=== PATIENT | male | born 1950 | race Hispanic/Latino ===

== ENCOUNTER → 2019-11-01 | Outpatient (CLI) | payer MEDICARE, OTHER | LOC: CARD 14:09 | PROVIDERS: ATTEND Internal Medicine Infectious Disease | DX: I73.89 Other specified peripheral vascular diseases (principal); I87.2 Venous insufficiency (chronic) (peripheral) | CPT/HCPCS: 93922; 93925; 93970 ==

== ENCOUNTER 2019-11-06 14:11 | Outpatient (RCR) | payer MEDICARE, OTHER ==
[2019-11-02 12:31] LABS: BASOPHILS % 0.4 % (0.0-1.0); EOSINOPHILS # (AUTO) 0.1 (0.0-0.4); EOSINOPHILS % 1.8 % (0.0-6.0); HEMATOCRIT 41.4 % (38.2-49.6); HEMOGLOBIN 13.5 g/dL (14.0-18.0); LYMPHOCYTES # (AUTO) 0.9 (1.0-3.2); LYMPHOCYTES % 13.6 % (18.0-39.1); MEAN CORPUSCULAR HEMOGLOBIN 29.3 pg (28-32); MEAN CORPUSCULAR HGB CONC 32.6 g/dL (31-35); MONOCYTES # (AUTO) 0.5 (0.2-0.8); MONOCYTES % 7.6 % (4.4-11.3); NEUTROPHILS # (AUTO) 5.2 (2.1-6.9); NEUTROPHILS % 76.2 % (38.7-80.0); PLATELET COUNT 203 x10e3/uL (140-360); RED CELL DISTRIBUTION WIDTH 13.8 % (11.7-14.4)
[2019-11-02 12:49] LABS: INR 1.04; PARTIAL THROMBOPLASTIN TIME 29.9 seconds (23.8-35.5); PROTHROMBIN TIME 14.2 seconds (11.9-14.5)
[2019-11-02 12:57] LABS: ALBUMIN 3.1 g/dL (3.5-5.0); ALBUMIN/GLOBULIN RATIO 0.6 (0.8-2.0); ALKALINE PHOSPHATASE 131 IU/L (40-150); ANION GAP 15.8 mmol/L (8-16); BLOOD UREA NITROGEN 17 mg/dL (7-26); BUN/CREATININE RATIO 25 (6-25); CALCIUM 9.1 mg/dL (8.4-10.2); CARBON DIOXIDE 25 mmol/L (22-29); CHLORIDE 102 mmol/L (98-107); CREATININE, SERUM 0.69 mg/dL (0.72-1.25); EST GLOMERULAR FILTRATION RATE > 60 ML/MIN (60-); GLUCOSE 89 mg/dL (74-118); POTASSIUM 3.8 mmol/L (3.5-5.1); SODIUM 139 mmol/L (136-145)
[2019-11-02 13:04] LABS: ALANINE AMINOTRANSFERASE < 6 IU/L (0-55)
[2019-11-02 13:19] LABS: ERYTHROCYTE SEDIMENTATION RATE 82 mm/hr (0-13)
[~2019-11-06 14:11] MED LIST: COLLAGENASE OINTMENT 30 GM TUBE ONE; MINERAL OIL/PETROLAT/GLYCERI 6OZ BTL ONE
[2019-11-06] MEDS ORDERED: LIDOCAINE/PRILOCAINE 2.5-2.5% KIT ONE (17:37)
[2019-11-06] MEDS ORDERED: COLLAGENASE OINTMENT 30 GM TUBE ONE (17:37)
[2019-11-06] MEDS ORDERED: MINERAL OIL/PETROLAT/GLYCERI 6OZ BTL ONE (17:37)
[2019-11-13] MEDS ORDERED: ELIQUIS5 MG PO (11:41)
[2019-11-13] MEDS ORDERED: CARBIDOPA-LEVO1 EAC1 PO (11:41)
[2019-11-13] MEDS ORDERED: ATORVASTATIN CA20 MG PO (11:41)
[2019-11-13] MEDS ORDERED: METOPROLOL SUCC50 MG PO (11:41)
[2019-11-13] MEDS ORDERED: PRAMIPEXOLE DIHY1 MG PO (11:41)
== END 2019-11-24 ==
LOC: WCC 14:11
PROVIDERS: ATTEND Internal Medicine Infectious Disease
DX: I87.332 Chronic venous hypertension (idiopathic) with ulcer and inflammation of left lower extremity (principal); L97.829 Non-pressure chronic ulcer of other part of left lower leg with unspecified severity; L02.818 Cutaneous abscess of other sites; I87.2 Venous insufficiency (chronic) (peripheral); I73.89 Other specified peripheral vascular diseases; R60.0 Localized edema; L01.00 Impetigo, unspecified; I50.20 Unspecified systolic (congestive) heart failure; I48.91 Unspecified atrial fibrillation; I10 Essential (primary) hypertension; G20 Parkinson's disease; E78.5 Hyperlipidemia, unspecified
CPT/HCPCS: 36415; 80053; 83036; 85025; 85610; 85651; 85730; 87071; 87075; 87186; 87205

== ENCOUNTER 2019-11-12 16:21 | Inpatient (IN) | payer MEDICARE, OTHER ==
[~2019-11-12] VITALS: Ht 167.6 cm; Wt 120.7 kg
--- OUTSIDE RECORDS SUMMARY | 2019-11-12 12:30 | XMS REPORT | Summary of Care ---
Author Author DANELLE QUINTERO M.D. Organization Unknown Address Unknown Phone Unavailable Care Team Providers Care Senior Ui Software Engineer Name Role Phone DANELLE QUINTERO M.D. Unavailable Unavailable Maddy Jay LVN Unavailable Unavailable DANELLE QUINTERO MD Unavailable Unavailable Unavailable Unavailable Functional Status Name Dates Details Functional status health issues are not documented Status: Name Dates Details Cognitive status health issues are not documented Status: Problems Name Dates Details Tremor (781.0, R25.1) Status: Active Parkinson's disease (332.0, G20) Status: Active Social alcohol use (V49.89, Z78.9) Status: Active Essential hypertension (401.9, I10) Status: Active Chronic atrial fibrillation (427.31, I48.20) Status: Active Cardiomyopathy (425.4, I42.9) Status: Active Diastolic HF (heart failure) (428.30, I50.30) Status: Active SOB (shortness of breath) (786.05, R06.02) Status: Active Hyperlipidemia (272.4, E78.5) Status: Active Cough (786.2, R05) Status: Active Syncope (780.2, R55) Status: Active Atrial fibrillation (427.31, I48.91) Status: Active Medications Name Dates Details Furosemide 40 MG Oral Tablet TAKE 1 TABLET DAILY Quantity: 90 DANELLE QUINTERO M.D. * Start : 28-Nov-2007 Active Carbidopa-Levodopa 25-100 MG Oral Tablet TAKE 2 TABLET 4 TIMES DAILY * Refills: 3 * Start : 29-Dec-2010 Active Pramipexole Dihydrochloride 1 MG Oral Tablet TAKE 2 TABLET 4 TIMES DAILY * Refills: 6 * Start : 29-Dec-2010 Active Eliquis 5 MG Oral Tablet TAKE 1 TABLET BY MOUTH TWICE DAILY * Quantity: 180 Refills: 1 DANELLE QUINTERO M.D. * Start : 28-Aug-2018 Active Atorvastatin Calcium 20 MG Oral Tablet TAKE 1 TABLET BY MOUTH ONCE DAILY * Quantity: 90 Refills: 0 DANELLE QUINTERO M.D. * Start : 23-May-2018 Active Metoprolol Succinate ER 50 MG Oral Tablet Extended Release 24 Hour TAKE 1 TABLET DAILY. * Quantity: 90 Refills: 3 DANELLE QUINTERO M.D. * Start : 26-Oct-2018 Active Allergies and Adverse Reactions Name Dates Details No Known Drug Allergies (Allergy) Status: Active Past Medical History Name Dates Details History of cardiac disorder (V12.50, Z86.79) Status: Resolved History of No Recent Change In Medical History Status: Resolved Procedures Procedure Dates Details Procedures not documented Immunization Name Dates Details Immunizations not documented Family History Name Dates Details Family history of Family History Comments: Family History Status: Active Family history of Hypertension (V17.49) Comments: Family History Status: Active Family history of Heart Disease (V17.49) Comments: Family History Status: Active Family history of Thrombophlebitis Of Deep Vessels Of The Lower Extremity Comments: Family History Status: Active Name Dates Details No pertinent family history (V49.89, Z78.9) Status: Active Social History Name Dates Details - Status: Name Dates Details Never smoker Vital Signs Date Test Result Details No Known Vitals to report Results Date Description Value Details Results not documented Plan of Care Name Dates Details Planned Observations Planned Goals not documented Planned Encounters Appointment; DANELLE QUINTERO M.D. On: 22-Nov-2019 10:20 Interventions Provided Medication Changes* Eliquis 5 MG Oral Tablet - Renew Instructions Name Dates Details Instructions not documented Encounters Appointment; DANELLE QUINTERO M.D. Encounter Diagnosis: Problem not documented On: 10-Nov-2017 8:00 Appointment; DANELLE QUINTERO M.D. Encounter Diagnosis: Problem not documented On: 11-May-2018 12:00 Appointment; [facility] Encounter Diagnosis: Problem not documented On: 18-May-2018 15:00 Appointment; DANELLE QUINTERO M.D. Encounter Diagnosis: Problem not documented On: 26-Oct-2018 12:00 Appointment; DANELLE QUINTERO M.D. Encounter Diagnosis: Problem not documented On: 07-Dec-2018 10:20 Appointment; DANELLE QUINTERO M.D. Encounter Diagnosis: Problem not documented On: 13-Dec-2018 9:20 Appointment; DANELLE QUINTERO M.D. Encounter Diagnosis: Problem not documented On: 15-Mar-2019 12:00 Appointment; DANELLE QUINTERO M.D. Encounter Diagnosis: Problem not documented On: 24-May-2019 8:00
--- OUTSIDE RECORDS SUMMARY | 2019-11-12 16:24 | XMS REPORT ---
[facility] Address Unknown Phone Unavailable Care Team Providers Care Document Control Manager Name Role Phone ADOLOF RING Unavailable Unavailable Problems This patient has no known problems. Allergies, Adverse Reactions, Alerts This patient has no known allergies or adverse reactions. Medications This patient has no known medications. Results Test Description Test Time Test Comments Text Results Atomic Results Result Comments CHEST XRAY LINE PLACEMENT 2019-11-12 14:21:00 [place] [id number] Patient Name: NORBERT MOSLEY MR #: [id number] : 1950 Age/Sex: 69/M Req #: [id number] Adm Physician: Ordered by: ADOLFO RING MD Report #: [id number] Location: DX Room/Bed: Procedure: [id number] DX/CHEST XRAY LINE PLACEMENT Exam Date: Exam Time: REPORT STATUS: Signed EXAMINATION: CHEST XRAY LINE PLACEMENT INDICATION: L ine placement COMPARISON: None FINDINGS: LINES/TUBES:Right PICC line terminates in the superior vena cava. LUNGS:The lungs are moderately inflated. No focal consolidation or pulmonary edema. PLEURA:No pleural effusion or pneumothorax. MEDIASTINUM:The cardiomediastinal silhouette appears normal in size and shape. BONES/SOFT TISSUES:No acute osseous injury. ABDOMEN:No free air under the diaphragm. IMPRESSION: Right PICC line terminates in the superior vena cava. Signed by: Farrukh Albert MD on 11/12/2019 2:22 PM Dictated By: FARRUKH ALBERT MD 142 Transcribed By: KEVIN on 11/12/191421 COPY TO: ADOLFO RING MD
--- NOTE | 2019-11-12 21:05 | NUR ---
PICC Placement confirmed via CXR done today VISION SPECIALIST, line was placed at this facility VISION SPECIALIST in radiology for OPTX or possible IPTX, workup in progress, Pt and family verbalize understanding.
[2019-11-12] MEDS ORDERED: VANCOMYCIN 1GM/NS 250 ML 250 ML IV ONE (21:15)
[2019-11-12 21:24] LABS: BASOPHILS % 0.6 % (0.0-1.0); EOSINOPHILS # (AUTO) 0.1 (0.0-0.4); HEMATOCRIT 42.3 % (38.2-49.6); HEMOGLOBIN 13.7 g/dL (14.0-18.0); LYMPHOCYTES # (AUTO) 1.3 (1.0-3.2); MEAN CORPUSCULAR HEMOGLOBIN 28.5 pg (28-32); MEAN CORPUSCULAR HGB CONC 32.4 g/dL (31-35); MEAN CORPUSCULAR VOLUME 88.1 fL (81-99); MONOCYTES # (AUTO) 0.8 (0.2-0.8); MONOCYTES % 11.7 % (4.4-11.3); NEUTROPHILS # (AUTO) 4.8 (2.1-6.9); NEUTROPHILS % 67.3 % (38.7-80.0); PLATELET COUNT 243 x10e3/uL (140-360); RED CELL DISTRIBUTION WIDTH 13.8 % (11.7-14.4)
[2019-11-12 21:30] LABS: INR 1.02
[2019-11-12 21:31] LABS: PARTIAL THROMBOPLASTIN TIME 38.4 seconds (23.8-35.5)
[2019-11-12 21:40] LABS: ALANINE AMINOTRANSFERASE 22 IU/L (0-55); ALBUMIN 2.9 g/dL (3.5-5.0); ALBUMIN/GLOBULIN RATIO 0.5 (0.8-2.0); ALKALINE PHOSPHATASE 165 IU/L (40-150); ANION GAP 16.7 mmol/L (8-16); BLOOD UREA NITROGEN 17 mg/dL (7-26); BUN/CREATININE RATIO 25 (6-25); CALCIUM 9.6 mg/dL (8.4-10.2); CARBON DIOXIDE 27 mmol/L (22-29); CHLORIDE 101 mmol/L (98-107); CREATININE, SERUM 0.68 mg/dL (0.72-1.25); EST GLOMERULAR FILTRATION RATE > 60 ML/MIN (60-); GLUCOSE 103 mg/dL (74-118); POTASSIUM 3.7 mmol/L (3.5-5.1); SODIUM 141 mmol/L (136-145)
[2019-11-12] MEDS ORDERED: CEFEPIME 1GM/NS 0.9% 50 ML 50 ML IV ONE (21:45)
[2019-11-13] MEDS ORDERED: MORPHINE SULFATE 2 MG/ML SYR 1ML IV PRN ×2 (00:45→09:15)
--- NOTE | 2019-11-13 01:01 | NUR ---
Pt updated on POC and TX, intent of admission for IV ABX, verbalized understanding; Wound care provided for Pt, wet to dry dresssing in place.
[2019-11-13] MEDS: ONDANSETRON HCL INJ 2MG/ML 2ML 2 MG/ML VIAL IV PRN ×2 (01:41→21:56)
--- NOTE | 2019-11-13 06:16 | NUR ---
Pt assisted at bedside with urinal, voided approx 400 cc at this time.
[2019-11-13] MEDS ORDERED: POLYETHYLENE GLYCOL 3350 17 GM PACK PO PRN (09:15)
[2019-11-13] MEDS ORDERED: BENZONATATE 100 MG CAP PO PRN (09:15)
[2019-11-13] MEDS ORDERED: ACETAMINOPHEN 325 MG TAB PO PRN (09:15)
[2019-11-13] MEDS ORDERED: HYDROCODONE/APAP 5MG-325MG TAB PO PRN (09:15)
[2019-11-13] MEDS ORDERED: DOCUSATE SODIUM 100 MG CAP PO PRN (09:15)
[2019-11-13] MEDS ORDERED: HYDRALAZINE HCL 20 MG/ML VIAL IV PRN (09:15)
[2019-11-13 09:47] LABS: BASOPHILS % 0.5 % (0.0-1.0); EOSINOPHILS # (AUTO) 0.1 (0.0-0.4); HEMATOCRIT 38.1 % (38.2-49.6); HEMOGLOBIN 12.2 g/dL (14.0-18.0); LYMPHOCYTES # (AUTO) 0.9 (1.0-3.2); LYMPHOCYTES % 11.9 % (18.0-39.1); MEAN CORPUSCULAR HEMOGLOBIN 28.4 pg (28-32); MEAN CORPUSCULAR VOLUME 88.8 fL (81-99); MONOCYTES # (AUTO) 0.7 (0.2-0.8); MONOCYTES % 9.1 % (4.4-11.3); NEUTROPHILS # (AUTO) 6.1 (2.1-6.9); PLATELET COUNT 227 x10e3/uL (140-360); RED BLOOD COUNT 4.29 x10e6/uL (4.3-5.7); RED CELL DISTRIBUTION WIDTH 13.8 % (11.7-14.4)
[2019-11-13 10:05] LABS: ANION GAP 12.8 mmol/L (8-16); BLOOD UREA NITROGEN 15 mg/dL (7-26); BUN/CREATININE RATIO 23 (6-25); CALCIUM 9.2 mg/dL (8.4-10.2); CARBON DIOXIDE 28 mmol/L (22-29); CHLORIDE 103 mmol/L (98-107); CREATININE, SERUM 0.64 mg/dL (0.72-1.25); EST GLOMERULAR FILTRATION RATE > 60 ML/MIN (60-); GLUCOSE 129 mg/dL (74-118); POTASSIUM 3.8 mmol/L (3.5-5.1); SODIUM 140 mmol/L (136-145)
[2019-11-13] MEDS: VANCOMYCIN 1GM/NS 250 ML 250 ML IV SCH ×2 (11:18→23:51)
[2019-11-13] MEDS: CEFEPIME 1GM/NS 0.9% 50 ML 50 ML IV SCH ×2 (11:18→21:01)
[2019-11-13] MEDS ORDERED: ATORVASTATIN CA20 MG PO (11:41)
[2019-11-13] MEDS ORDERED: CARBIDOPA-LEVO1 EAC1 PO (11:41)
[2019-11-13] MEDS ORDERED: ELIQUIS5 MG PO (11:41)
[2019-11-13] MEDS ORDERED: METOPROLOL SUCC50 MG PO (11:41)
[2019-11-13] MEDS ORDERED: PRAMIPEXOLE DIHY1 MG PO (11:41)
[2019-11-13] MEDS: CARBIDOPA/LEVODOPA 25/100 TAB PO SCH ×3 (14:25→21:00)
[2019-11-13] MEDS: PRAMIPEXOLE DIHYDROCHLORIDE 1 MG TAB PO SCH ×3 (15:12→20:57)
[2019-11-13] MEDS: APIXABAN 5 MG TABLET PO SCH (17:53)
[2019-11-13] MEDS: METOPROLOL SUCCINATE 50 MG TAB XL PO SCH (17:53)
--- NOTE | 2019-11-13 20:15 | NUR ---
Received patient from ER, alert, not in distress, at the bedside. Call light within easy reach, patient made comfortable in bed, plan of care discussed to patient, patient verbalized understanding. PICC line is ok to use per report, will continue to monitor patient
[2019-11-13] MEDS ORDERED: SODIUM CHLORIDE 0.9% 250ML 250 ML ONE (20:57)
[2019-11-13] MEDS: ATORVASTATIN 20 MG TAB PO SCH (20:57)
[2019-11-13 21:00] VITALS: BP 122/80
--- NOTE | 2019-11-13 21:00 | NUR ---
Wound care done, cleansed wound with sterile water and saline, telfa and gauze in place, wrapped leg with kerlix. Patient tolerated the procedure
[2019-11-13 21:13] VITALS: BP 112/82
--- NOTE | 2019-11-13 21:19 | Consultation ---
DATE OF CONSULTATION: REASON FOR CONSULTATION: Cellulitis of the left leg and also the right leg. HISTORY OF PRESENT ILLNESS: This patient who is a 69-year-old has a history of bilateral lower extremities lymphedema. The patient comes into the emergency room with redness and swelling of his leg. He has been having swelling of his legs for some time, but recently getting progressively worse. The patient in the last few days has redness, swelling, and seepage. The patient apparently has history of rectal cancer before. MEDICATION LIST: He is currently on Toprol, Eliquis, Sinemet, vancomycin, cefepime, Zofran, Lipitor, Colace, morphine. LABORATORY DATA: White count 7.9, hemoglobin of 12.2, his platelets of 227. Sodium 141, potassium 3.7, creatinine 0.68, alk phosphatase 165. PAST MEDICAL HISTORY: Hypercholesteremia, hypertension, and colon cancer. PAST SURGICAL HISTORY: As above. ALLERGIES: NKA. SOCIAL HISTORY: There is no smoking, drug abuse, or alcohol abuse. FAMILY HISTORY: Otherwise noncontributory. REVIEW OF SYSTEMS: At the present time, HEENT: There is no headache, visual changes, or hearing changes. GI: There is no nausea. No vomiting. No diarrhea. CARDIAC: There is no arrhythmia. NEURO: No seizure activity. SKIN: There are no other rashes, except on the bilateral lower extremities. EXTREMITIES: In the leg, there is redness and swelling noted. There is nonpitting edema. IMPRESSION: Cellulitis of the left leg in a patient with bilateral lower extremities lymphedema, history of hypertension. I agree with vancomycin, agree with cefepime, agree with thigh-high elastic stocking. Local care to keep the wound clean. Recommended to maximize the management of his blood pressure. Discussed with the patient. We will follow with you. We will follow with vancomycin trough and follow up CBC, chemistry panel. MD RACHEL Carr/SILVIA /[id number]
--- NOTE | 2019-11-13 23:54 | History and Physical ---
CHIEF COMPLAINT: Left lower extremity cellulitis. HISTORY OF PRESENT ILLNESS: A 69-year-old male, morbidly obese, history of Parkinson disease, hypertension, hyperlipidemia, presented to the ED with worsening left lower extremity cellulitis as well as underlying lymphedema. The patient reports he has been dealing with this left lower extremity cellulitis and ulceration ongoing since June of 2019. He has been following up as an outpatient with his PCP with little resolved. He has been following up in the Lymphedema Clinic as well with minimal results. He now presents with worsening left lower extremity cellulitis and came in for further evaluation and management. ID and Wound Care have been consulted. REVIEW OF SYSTEMS: Pertinent positives: Left lower extremity cellulitis with erythema and redness. The rest of 14-point review of systems are reviewed with the patient and are negative. ALLERGIES: NO KNOWN DRUG ALLERGIES. HOME MEDICATIONS: 1. Eliquis 5 mg p.o. b.i.d. 2. Lipitor 20 mg at bedtime. 3. Levodopa/carbidopa two tabs p.o. q.i.d. 4. Metoprolol 50 mg extended release b.i.d. He also takes pramipexole 2 mg p.o. q.i.d. PAST MEDICAL HISTORY: He has Parkinson disease, history of atrial fibrillation, hyperlipidemia. PAST SURGICAL HISTORY: Reports none. FAMILY HISTORY: Hypertension and diabetes. SOCIAL HISTORY: No drugs. No alcohol. Does not smoke. Good social support. He is . LABORATORY FINDINGS: Show white count 7.9, hemoglobin 12, hematocrit is 38, and platelets of 227. Coagulation; PT 14, INR 1, PTT 38. Chemistry sodium 140, potassium 3.8, chloride 103, bicarb 28, anion gap of 12. BUN 15, creatinine 0.64, glucose 129, A1c 5.6, calcium 9.2, total bilirubin was 0.8. AST 43, ALT 22, alkaline phosphatase 165, total protein 8.2, albumin is 2.9. MICROBIOLOGY: None. IMAGING STUDIES: None. PHYSICAL EXAMINATION: VITAL SIGNS: Temperature is 96.3, pulse 102, respiratory rate is 18, blood pressure 112/82, pulse ox 98% on room air. GENERAL: No acute distress. Alert and oriented x3. Cooperative on examination. HEENT: Head is normocephalic and atraumatic. Eyes; pupils are equal, round, and reactive to light bilaterally. Extraocular movements are intact bilaterally. Throat, no evidence of any erythema or exudates in the posterior pharynx. Has poor dentition. NECK: Supple. Good range of motion. PULMONARY: Clear to auscultation bilaterally. No wheezing, rales, or rhonchi. No crackles appreciated. CARDIOVASCULAR: Positive S1, S2. No murmurs, rubs, or gallops appreciated. ABDOMEN: Soft, nondistended, and nontender to palpation. Bowel sounds present. MUSCULOSKELETAL: Strength is 5/5 throughout. No evidence of any muscle deficits on examination. No weakness appreciated. NEUROLOGIC: Cranial nerve 2 through 12 grossly intact. No evidence of any neurological deficits on exam. SKIN: Intact. Warm to touch. Good cap refill. PSYCHIATRIC: Normal affect and mood. EXTREMITIES: His left lower extremity is erythematic, warm to touch. He has some significant lower extremity edema as well. IMPRESSION: 1. Left lower extremity cellulitis. 2. Bilateral lower extremity lymphedema. 3. History of atrial fibrillation, on anticoagulation. 4. Parkinson disease. 5. Hypoalbuminemia. PLAN: At this time, start on IV antibiotics, get lower extremity venous Doppler, get ID and Wound Care consultation. Local wound care ordered. Restart levodopa/carbidopa for his underlying Parkinson disease. The patient's albumin level is low. We will get urine protein to creatinine ratio as well as microalbumin to creatinine ratio. Restart all his antihypertensive medications. He is already on Eliquis for DVT prophylaxis. Get PT/OT evaluation. MD ELIZABET Nguyễn/FRANCISCOL /[id number]
[2019-11-14 01:00] VITALS: BP 129/81
[2019-11-14] MEDS: FUROSEMIDE INJ 10 MG/ML 4 ML VIAL IV SCH ×3 (05:02→22:09)
[2019-11-14 05:30] LABS: BASOPHILS % 0.6 % (0.0-1.0); EOSINOPHILS # (AUTO) 0.3 (0.0-0.4); EOSINOPHILS % 3.9 % (0.0-6.0); HEMATOCRIT 36.5 % (38.2-49.6); HEMOGLOBIN 11.5 g/dL (14.0-18.0); LYMPHOCYTES # (AUTO) 1.1 (1.0-3.2); LYMPHOCYTES % 15.7 % (18.0-39.1); MEAN CORPUSCULAR HGB CONC 31.5 g/dL (31-35); MONOCYTES # (AUTO) 0.7 (0.2-0.8); MONOCYTES % 10.3 % (4.4-11.3); NEUTROPHILS # (AUTO) 4.6 (2.1-6.9); NEUTROPHILS % 69.1 % (38.7-80.0); PLATELET COUNT 195 x10e3/uL (140-360); RED CELL DISTRIBUTION WIDTH 13.9 % (11.7-14.4)
[2019-11-14 05:47] LABS: ANION GAP 13.5 mmol/L (8-16); BLOOD UREA NITROGEN 14 mg/dL (7-26); BUN/CREATININE RATIO 23 (6-25); CALCIUM 8.5 mg/dL (8.4-10.2); CARBON DIOXIDE 28 mmol/L (22-29); CHLORIDE 101 mmol/L (98-107); CREATININE, SERUM 0.61 mg/dL (0.72-1.25); EST GLOMERULAR FILTRATION RATE > 60 ML/MIN (60-); GLUCOSE 95 mg/dL (74-118); POTASSIUM 3.5 mmol/L (3.5-5.1); SODIUM 139 mmol/L (136-145)
[2019-11-14 06:34] VITALS: BP 142/98
--- NOTE | 2019-11-14 07:16 | NUR ---
walking rounds done with dayshift RN, call light within easy reach, at bedside
[2019-11-14 07:25] VITALS: BP 113/98
--- NOTE | 2019-11-14 07:25 | NUR ---
PT UP IN CHAIR , DENIES PAIN NO DISTRESS NTOED,DRSG TO LOWER EXT APPLIED.
[2019-11-14] MEDS: PRAMIPEXOLE DIHYDROCHLORIDE 1 MG TAB PO SCH ×4 (09:18→22:09)
[2019-11-14] MEDS: METOPROLOL SUCCINATE 50 MG TAB XL PO SCH ×2 (09:18→17:00)
[2019-11-14] MEDS: APIXABAN 5 MG TABLET PO SCH ×2 (09:18→16:50)
[2019-11-14] MEDS: CARBIDOPA/LEVODOPA 25/100 TAB PO SCH ×4 (09:18→22:09)
[2019-11-14] MEDS ORDERED: SODIUM HYPOCHLORITE 0.25% 480 ML SOLN IR ONE (10:00)
[2019-11-14] MEDS: CEFEPIME 1GM/NS 0.9% 50 ML 50 ML IV SCH ×2 (10:00→22:09)
[2019-11-14] MEDS: VANCOMYCIN 1GM/NS 250 ML 250 ML IV SCH (12:00)
--- NOTE | 2019-11-14 14:37 | NUR ---
WOUND CARE CONSULT FOR 69 YO MALE HX OF_LYMPH EDEMA AND SKIN ULCERATION FABIOLA 11 ON STRICT PUP STATUS AND INTERVENTIONS AND ALTERNATING PRESSURE MATTRESS LABS: WBC-7.07 HGB_ 13.7 GLUCOSE-103 NIJH9P-9.6 SKIN ASSESSMENT COMPLETE PATIENT PRESENTS WITH BILATERAL LOWER LEG EDEMA LEFT LOWER LEG HAS ULCERATION 20CM X12CM X.2CM 75 % BRIGHT RED BASE AND 25% YELLOW BROWNISH SLOUGH RECOMMENDATIONS: NURSING TO CONTINUE TO MAINTAIN STRICT PUP STATUS AND INTERVENTIONS AND ALTERNATING PRESSURE MATTRESS NURSING TO CONTINUE TO ASSIST PATIENT OUT OF BED FOR MEALS AND MUCH TOLERATED NURSING TO CONTINUE TO ASSIST PATIENT NEEDED WITH MEALS AND NUTRITIONAL SUPPLEMENTS TO ENSURE PROPER REQUIREMENTS FOR HEALING NURSING TO CONTINUE TO OFFLOAD FEET AND HEELS NEEDED WITH PILLOW SUSPENSION WHEN IN BED MD ORDERS IN PLACE FOR DAILY WOUND CARE TREATMENT Addendum: 11/14/19 at 1447 by Chato Guidry RN Amended: Links added.
[2019-11-14 15:05] VITALS: BP 104/77
--- NOTE | 2019-11-14 15:17 | Consultation ---
DATE OF CONSULTATION: Wound Consultation Thank you, Dr. Del Toro, for asking me to see this patient. HISTORY OF PRESENT ILLNESS: A 69-year-old morbidly obese male patient with history of chronic atrial fibrillation, Parkinson disease, wheelchair-bound and long-standing bilateral lower extremity edema. He was using lymphedema pump 2 years back, stopped following, has chronic nonhealing ulcer to the left leg past few months, gotten worse with necrotic infection. The patient came to the emergency room due to failed outpatient treatment. PAST MEDICAL HISTORY: Atrial fibrillation, hypertension, Parkinson disease, chronic leg edema, lymphedema, obesity. PERSONAL HISTORY: He used to smoke cigarette, very long time ago. No smoking for 40 years. Lives with . PAST SURGICAL HISTORY: None. PHYSICAL EXAMINATION: VITAL SIGNS: Blood pressure 142/98, pulse of 88, temperature 96.8, weight 277 pounds, height 5 feet 6 inches, BMI 44.7. HEENT: Normal. NECK: No JVD. LUNGS: Bilaterally air entry diminished. CVS: Normal. ABDOMEN: Soft. Bowel sounds normal. EXTREMITIES: Protuberant lower extremities. Bilateral lower extremity 3+ edema present. Chronic venous stasis. Heme pigmentation noted in both legs. Left leg the patient has full-thickness ulcer involving the calf muscle down to the ankle, copious amount of drainage with cellulitis present. Wound margin attached to base. 70% necrotic, 30% slough. ASSESSMENT: Left leg chronic nonhealing venous ulcer with morbid obesity, Parkinson's, atrial fibrillation. PLAN: We will clean wound with normal saline, Adaptic, wet-to-dry Dakin's, ABD, Kerlix, and Coban, change dressing daily, antibiotics. Needs duplex venous Doppler with possible venous ablative procedure for venous insufficiency recorded as outpatient. Bedrest and elevation, antibiotics. Thank you for consultation. MD MAY Gastelum/SILVIA /[id number]
--- NOTE | 2019-11-14 17:30 | NUR ---
PT UP IN BED NO DISTRESS NOTED,DENIES PAIN,DRSG TO LEG CD&I
--- NOTE | 2019-11-14 19:12 | NUR ---
Received bedside report from day nurse. Patient resting in bed, no s/s of distress or c/o pain at this time. All safety measures in place. Will continue to monitor.
--- NOTE | 2019-11-14 19:45 | NUR ---
Called Dr. Del Toro and received orders to draw vancomycin trough before tonight's 4th dose, and to hold if greater than 20.
[2019-11-14 20:00] VITALS: BP 116/65
[2019-11-14] MEDS: ATORVASTATIN 20 MG TAB PO SCH (22:09)
[2019-11-14 22:57] VITALS: BP 116/65
--- NOTE | 2019-11-14 23:33 | NUR ---
Vancomycin trough drawn and sent to lab.
[2019-11-15] VITALS (8 sets, daily range): BP systolic 110–142; BP diastolic 57–94
--- NOTE | 2019-11-15 00:03 | Progress Note ---
DATE: 11/14/2019 Medicine Progress Note SUBJECTIVE: The patient is doing well today with no complaints. No overnight events. Left lower extremity cellulitis, improving. LABORATORY FINDINGS: Show white count of 6.6, hemoglobin 9.5, hematocrit 36.5, platelets of 195. Coagulation; PT 14, INR 1, PTT 38. Chemistry, sodium 139, potassium 3.5, chloride 101, bicarb 28, anion gap of 13. BUN is 14, creatinine 0.61, glucose 95, calcium is 8.5. MICROBIOLOGY: None. IMAGING STUDIES: Lower extremity venous Doppler results are still pending. Preliminary shows no evidence of DVT. PHYSICAL EXAMINATION: VITAL SIGNS: Temperature is 96.9, pulse 92, respiratory rate is 18, blood pressure 116/65, pulse ox 98% on room air. GENERAL: No acute distress. Alert and oriented x3. Cooperative on examination. HEENT: Head is normocephalic and atraumatic. Eyes; pupils are equal, round, and reactive to light bilaterally. Extraocular movements are intact bilaterally. Throat, no evidence of any erythema or exudates in the posterior pharynx. Has poor dentition. NECK: Supple. Good range of motion. PULMONARY: Clear to auscultation bilaterally. No wheezing, rales, or rhonchi. No crackles appreciated. CARDIOVASCULAR: Positive S1, S2. No murmurs, rubs, or gallops appreciated. ABDOMEN: Soft, nondistended, and nontender to palpation. Bowel sounds present. MUSCULOSKELETAL: Strength is 5/5 throughout. No evidence of any muscle deficits on examination. No weakness appreciated. NEUROLOGIC: Cranial nerve 2 through 12 grossly intact. No evidence of any neurological deficits on exam. SKIN: Intact. Warm to touch. Good cap refill. PSYCHIATRIC: Normal affect and mood. EXTREMITIES: Left lower extremity cellulitis with erythema and now currently wrapped during my evaluation. IMPRESSION: 1. Left lower extremity cellulitis. 2. Bilateral lower extremity lymphedema. 3. History of atrial fibrillation, on anticoagulation. 4. Parkinson disease. 5. Hypoalbuminemia. PLAN: At this time, continue with IV antibiotics. Lower extremity venous Doppler so far was found to be negative as preliminary awaiting final result. ID and Wound Care have been consulted. Continue with his levodopa/carbidopa. He is on Eliquis for DVT prophylaxis and underlying atrial fibrillation. He is working with PT and OT as well. My urine studies have not been collected, will notify nursing staff. MD ELIZABET Nguyễn/SILVIA /[id number]
--- NOTE | 2019-11-15 00:08 | NUR ---
Notified by lab of abnormal vancomycin trough of 35. Will hold vancomycin dose as ordered.
[2019-11-15] MEDS: GUAIFENESIN/CODEINE 10 ML CUP PO PRN ×2 (03:40→22:05)
[2019-11-15 05:10] LABS: BASOPHILS % 0.6 % (0.0-1.0); EOSINOPHILS # (AUTO) 0.3 (0.0-0.4); EOSINOPHILS % 4.3 % (0.0-6.0); HEMATOCRIT 37.3 % (38.2-49.6); LYMPHOCYTES # (AUTO) 1.4 (1.0-3.2); MEAN CORPUSCULAR HEMOGLOBIN 28.4 pg (28-32); MEAN CORPUSCULAR HGB CONC 32.2 g/dL (31-35); MEAN CORPUSCULAR VOLUME 88.2 fL (81-99); MONOCYTES # (AUTO) 0.6 (0.2-0.8); NEUTROPHILS # (AUTO) 4.4 (2.1-6.9); NEUTROPHILS % 65.2 % (38.7-80.0); PLATELET COUNT 223 x10e3/uL (140-360); RED BLOOD COUNT 4.23 x10e6/uL (4.3-5.7); RED CELL DISTRIBUTION WIDTH 13.8 % (11.7-14.4)
[2019-11-15 05:29] LABS: ANION GAP 12.1 mmol/L (8-16); BLOOD UREA NITROGEN 13 mg/dL (7-26); BUN/CREATININE RATIO 20 (6-25); CALCIUM 8.8 mg/dL (8.4-10.2); CARBON DIOXIDE 33 mmol/L (22-29); CHLORIDE 97 mmol/L (98-107); CREATININE, SERUM 0.64 mg/dL (0.72-1.25); EST GLOMERULAR FILTRATION RATE > 60 ML/MIN (60-); GLUCOSE 96 mg/dL (74-118); POTASSIUM 3.1 mmol/L (3.5-5.1); SODIUM 139 mmol/L (136-145)
[2019-11-15] MEDS: FUROSEMIDE INJ 10 MG/ML 4 ML VIAL IV SCH ×3 (06:29→22:03)
--- NOTE | 2019-11-15 07:02 | NUR ---
Bedside report given to day nurse. Patient sitting up in bed, no s/s of distress or c/o pain. Assisted patient to restroom using walker. Patient instructed to call for assistance when finished. Verbalized understanding. All safety measures in place.
[2019-11-15] MEDS: CARBIDOPA/LEVODOPA 25/100 TAB PO SCH ×4 (09:00→20:20)
[2019-11-15] MEDS: METOPROLOL SUCCINATE 50 MG TAB XL PO SCH ×2 (09:00→17:00)
[2019-11-15] MEDS: APIXABAN 5 MG TABLET PO SCH ×2 (09:00→17:00)
[2019-11-15] MEDS: PRAMIPEXOLE DIHYDROCHLORIDE 1 MG TAB PO SCH ×4 (09:00→20:20)
--- NOTE | 2019-11-15 10:00 | NUR ---
PHYSICAL THERAPY HERE AMBULATED PT IN GRAY WITH WALKER
[2019-11-15] MEDS: CEFEPIME 1GM/NS 0.9% 50 ML 50 ML IV SCH ×2 (10:05→22:03)
[2019-11-15] MEDS: VANCOMYCIN 1GM/NS 250 ML 250 ML IV SCH ×2 (12:00)
--- NOTE | 2019-11-15 13:00 | NUR ---
DEIDRE MORALES FOR DR RING HERE CHANGED DRESSING,EXPLAINED TO PT ABOUT WOUND,ACKNOWLEDGE UNDERSTANDING
--- NOTE | 2019-11-15 14:39 | NUR ---
Referral faxed to [facility] at [phone]. Alba with [facility] was notified of referral and confirmed she received clinical.
--- NOTE | 2019-11-15 17:52 | NUR ---
PT IN BED RESTING ,NO DISTRESSS NOTED,MARILUIES Yeison PORTERN
--- NOTE | 2019-11-15 19:00 | NUR ---
Received bedside report from day nurse. Patient sitting up in bed, no s/s of distress or c/o pain at this time. All safety measures in place. Family at bedside. Will continue to monitor.
--- NOTE | 2019-11-15 19:07 | Consultation ---
DATE OF CONSULTATION: Infectious Disease Initial Consultation CONSULTING PHYSICIAN: Yoel Del Toro MD. REASON FOR CONSULTATION: Cellulitis bilateral lower extremities with nonhealing venous stasis ulcers to left lower extremity. HISTORY OF PRESENT ILLNESS: This is a 69-year-old male, admitted for bilateral lower extremity lymphedema and cellulitis with nonhealing venous stasis ulcers. He comes to the emergency room from the outpatient wound clinic through [facility] under the care of Dr. Michael Hernandez, and admitted for the cellulitis and the need for IV antibiotics. The patient states that the wounds have been present off and on for the past 4 years. He has been seeing Dr. Hernandez at the outpatient wound clinic for the past 3 weeks and has failed outpatient therapy. PAST MEDICAL HISTORY: Hypercholesterolemia, hypertension, and colon cancer. PAST SURGICAL HISTORY: See HPI. FAMILY HISTORY: Noncontributory. SOCIAL HISTORY: Denies any tobacco, ETOH, or illicit drug use. ALLERGIES: NO KNOWN DRUG ALLERGIES. REVIEW OF SYSTEMS: A 14-point review of systems was conducted. He has a circumferential venous stasis ulcers to left lower extremity, most on the posterior lateral aspect of the leg. There is approximately 20% fibrotic tissue, remaining tissue is all granular. He is on blood thinners and he does have some areas of coagulated blood to the wound bed. Wound care has been conducted through Dr. Salguero, who has ordered Dakin solution and non-stick dressings as well as compression to bilateral lower legs. PHYSICAL EXAMINATION: VITAL SIGNS: Currently, temperature 96.2, blood pressure 129/70, respirations 20, and pulse 82. He is afebrile. GENERAL: He is awake, alert, and oriented x3. He does not appear to be in any acute distress. HEENT: Head is normocephalic and atraumatic. PERRLA. Extraocular movements are intact. NECK: Supple. No lymphadenopathy. LUNGS: Clear to auscultation bilaterally. CARDIOVASCULAR: Regular rate and rhythm. Normal S1 and S2. ABDOMEN: Soft and nontender. Bowel sounds present x4. NEUROLOGICAL: Nonfocal. Cranial nerves 2 through 12 grossly intact. SKIN: Circumferential venous stasis ulcer to left lower extremity with lymphedema, 20% fibrotic tissue to wound base. No odor. Redness has been improving. LABORATORY AND DIAGNOSTIC DATA: Reviewed. There is no leukocytosis. ESR 79. Creatinine 0.64. Hemoglobin A1c of 5.6. Venous Doppler show no DVT to either lower extremity. Wound cultures from 11/02/2019, Acinetobacter, E. coli, Staph aureus, and Strep agalactiae group B. ASSESSMENT: 1. Cellulitis to left lower extremity. 2. Nonhealing venous stasis ulcer circumferentially, left lower extremity. 3. Lymphedema. 4. Hypertension. 5. On anticoagulant therapy. PLAN AND RECOMMENDATIONS: We will continue with vancomycin and cefepime. We will adjust vancomycin dose. Vancomycin trough last night was 30. Further recommendations to follow based on the patient's clinical course. Continue wound care per Dr. Salguero. Thank you, Dr. Del Toro, for the consultation. We will gladly follow the patient along with you. Dictated by Jermaine Gandara NP MD SHASHANK Calzada/SILVIA /[id number]
[2019-11-15] MEDS ORDERED: VANCOMYCIN 1GM/NS 250 ML 250 ML IV SCH (20:00)
[2019-11-15] MEDS: ATORVASTATIN 20 MG TAB PO SCH (20:20)
--- NOTE | 2019-11-16 00:48 | Progress Note ---
DATE: 11/15/2019 Medicine Progress Note SUBJECTIVE: The patient is doing well today with no complaints. No overnight events. Vital signs, he is afebrile, normotensive. Respiratory rate is good. Labs reviewed and stable. OBJECTIVE: GENERAL: No acute distress. Alert and oriented x3. Cooperative on examination. HEENT: Head is normocephalic and atraumatic. Eyes; pupils are equal, round, and reactive to light bilaterally. Extraocular movements are intact bilaterally. Throat, no evidence of any erythema or exudates in the posterior pharynx. Has poor dentition. NECK: Supple. Good range of motion. PULMONARY: Clear to auscultation bilaterally. No wheezing, rales, or rhonchi. No crackles appreciated. CARDIOVASCULAR: Positive S1, S2. No murmurs, rubs, or gallops appreciated. ABDOMEN: Soft, nondistended, and nontender to palpation. Bowel sounds present. MUSCULOSKELETAL: Strength is 5/5 throughout. No evidence of any muscle deficits on examination. No weakness appreciated. NEUROLOGIC: Cranial nerve 2 through 12 grossly intact. No evidence of any neurological deficits on exam. SKIN: Intact. Warm to touch. Good cap refill. PSYCHIATRIC: Normal affect and mood. EXTREMITIES: No edema, good range of motion throughout. IMPRESSION: 1. Left lower extremity cellulitis. 2. Bilateral lower extremity lymphedema. 3. History of atrial fibrillation, on anticoagulation. 4. Parkinson disease. 5. Hypoalbuminemia. PLAN: At this time, the original Infectious Disease doctor was reconsulted. The prior ID doctor was not his physician. IV antibiotics will continue. Venous Doppler of the lower extremities preliminary shows to be negative. He would continue with levodopa/carbidopa. ID once LTAC, which in order has been placed for long-term IV antibiotics and wound care. Continue with local wound care. Monitor very closely. He is on Eliquis for DVT prophylaxis. MD ELIZABET Nguyễn/SILVIA /[id number]
[2019-11-16 01:28] VITALS: BP 129/64
[2019-11-16 05:08] VITALS: BP 130/63
--- NOTE | 2019-11-16 05:10 | NUR ---
Unable to draw blood from PICC line. Will perform needle draw and notify day nurse.
[2019-11-16 06:05] LABS: ANION GAP 11.1 mmol/L (8-16); BLOOD UREA NITROGEN 17 mg/dL (7-26); BUN/CREATININE RATIO 25 (6-25); CALCIUM 9.1 mg/dL (8.4-10.2); CARBON DIOXIDE 35 mmol/L (22-29); CHLORIDE 95 mmol/L (98-107); CREATININE, SERUM 0.68 mg/dL (0.72-1.25); EST GLOMERULAR FILTRATION RATE > 60 ML/MIN (60-); GLUCOSE 103 mg/dL (74-118); POTASSIUM 3.1 mmol/L (3.5-5.1); SODIUM 138 mmol/L (136-145)
--- NOTE | 2019-11-16 07:27 | NUR ---
Bedside report given to day nurse. Patient awake and resting in bed, no s/s of distress or c/o pain at this time. All safety measures in place. Family at bedside.
[2019-11-16 08:11] VITALS: BP 146/97
[2019-11-16 08:32] VITALS: BP 146/97
[2019-11-16] MEDS: CARBIDOPA/LEVODOPA 25/100 TAB PO SCH ×3 (09:08→17:12)
[2019-11-16] MEDS: CEFEPIME 1GM/NS 0.9% 50 ML 50 ML IV SCH (09:08)
[2019-11-16] MEDS: PRAMIPEXOLE DIHYDROCHLORIDE 1 MG TAB PO SCH ×3 (09:08→17:12)
[2019-11-16] MEDS: APIXABAN 5 MG TABLET PO SCH ×2 (09:08→17:12)
[2019-11-16] MEDS: METOPROLOL SUCCINATE 50 MG TAB XL PO SCH ×2 (09:09→17:12)
[2019-11-16 11:50] VITALS: BP 119/74
--- NOTE | 2019-11-16 12:35 | NUR ---
LONG-TERM ACUTE CARE DISCHARGE INFORMATION PATIENT HAS BEEN ACCEPTED TO: [address] [place] [address] ACCEPTING [employer] T[employer] DRIVER: Katty Norris ACCEPTING MD: Dr. Rangel Patterson ROOM: 804 NURSE CALL REPORT TO: [phone] THE FOLLOWING DOCUMENTS MUST ACCOMPANY PATIENT FOR TRANSFER: copy of chart, transfer MAR COPIED CHART: Rossy, community health nurse staff MOT INFO RECEIVED FROM: Alba Burleson with [facility] PHYSICIANS ORDER/RECONCILED MED LIST: to be obtained by bedside RN [id number] DNR: n/a DONOVAN Venegas and DONOVAN Sanfordsupervisor ride assembly was notified of MOT. MOT placed with pt's packet at nurse's station.
[2019-11-16] MEDS ORDERED: ONDANSETRON HCL 4 MG ORAL DISINTEGRATING TAB PO PRN (12:45)
[2019-11-16] MEDS ORDERED: POTASSIUM CHLORIDE 20 MEQ TAB CR PO ONE (13:15)
--- NOTE | 2019-11-16 15:24 | NUR ---
Report called to [facility] and given to Lupe SIMS of patient's status
[2019-11-16 16:25] VITALS: BP 152/88
--- NOTE | 2019-11-16 18:45 | NUR ---
Taken via stretcher. Accompanied by . AAOX3 to time, person, place. Respirations even and unlabored. Dressing to Right PICC line clean, dry, and intact. Dressing to BLE clean, dry, and intact. Transfer package given to [facility]. All personal belongings taken with patient .
--- NOTE | 2019-11-17 02:15 | Discharge Summary ---
FINAL DISCHARGE DIAGNOSES: 1. Left lower extremity cellulitis with wound infection. 2. Chronic lower extremity lymphedema. 3. History of atrial fibrillation, on anticoagulation. 4. History of Parkinson disease. 5. Hypoalbuminemia. CONSULTANTS: 1. Wound Care. 2. Infectious Disease. VITAL SIGNS: Temperature is 97.7, pulse 92, blood pressure 152/88, and pulse ox 100% on room air. LABORATORY FINDINGS: Show white count 6.7, hemoglobin 12, hematocrit 37, platelets of 223. Coagulation, PT 14, INR 1, PTT 38. Chemistry: Sodium 138, potassium 3.1, replaced, chloride 95, bicarb 35, anion gap of 11, BUN 17, creatinine is 0.68, calcium is 9.1, total bilirubin is 0.8, AST 43, ALT was 22, albumin was 2.9. Toxicology screen random vancomycin level was 3.4. MICROBIOLOGY: None. IMAGING STUDIES: Lower extremity venous Doppler shows no evidence of any DVT bilaterally. HOSPITAL COURSE: This is a 69-year-old male, morbidly obese, multiple comorbidities, comes in with worsening left lower extremity cellulitis and wound infection. The patient was admitted and ID was consulted including wound care. The patient maintained on broad-spectrum IV antibiotic therapy. His imaging study shows no evidence of DVT. The patient maintained on aggressive IV antibiotic and local wound care provided. The patient was then discharged to LTAC for further management and care as per local wound care and IV antibiotic treatment. On the day of discharge, vital signs were stable, labs reviewed and stable. The patient seen and evaluated, examined thoroughly on the day of discharge. No other complaints. The patient verbalized understanding and agrees to plan of care, to follow up accordingly as an outpatient with the primary care physician in 1 week and Infectious Disease doctor in 2 weeks' time. MEDICATIONS: See med reconciliation form. DISPOSITION: [facility]. CONDITION: Stable. DIET: Heart healthy. In the event of any worsening symptoms, patient was advised to come back to the ED for further evaluation. Discharge summary took greater than 35 minutes. MD ELIZABET Nguyễn/MODL /[id number]
== END 2019-11-16 18:45 | DRG 300 ==
LOC: ER 16:21 → ERHOLD 11-13 01:12 → MED/SURG2 11-13 20:11
PROVIDERS: ADMIT Internal Medicine; ATTEND Internal Medicine
PROC: 02HV33Z Insertion of Infusion Device into Superior Vena Cava, Percutaneous Approach (ICD-10-PCS; principal; 2019-11-13)
DX: I87.2 Venous insufficiency (chronic) (peripheral) (principal); L03.116 Cellulitis of left lower limb; Z68.41 Body mass index [BMI] 40.0-44.9, adult; L97.829 Non-pressure chronic ulcer of other part of left lower leg with unspecified severity; I48.20 Chronic atrial fibrillation, unspecified; I89.0 Lymphedema, not elsewhere classified; I48.91 Unspecified atrial fibrillation; Z79.01 Long term (current) use of anticoagulants; E78.00 Pure hypercholesterolemia, unspecified; E66.01 Morbid (severe) obesity due to excess calories; G20 Parkinson's disease; E88.09 Other disorders of plasma-protein metabolism, not elsewhere classified; D64.9 Anemia, unspecified; E87.8 Other disorders of electrolyte and fluid balance, not elsewhere classified; B95.62 Methicillin resistant Staphylococcus aureus infection as the cause of diseases classified elsewhere; B96.20 Unspecified Escherichia coli [E. coli] as the cause of diseases classified elsewhere; B95.4 Other streptococcus as the cause of diseases classified elsewhere
CPT/HCPCS: 36415; 80048; 80053; 80202; 83036; 84134; 85025; 85610; 85651; 85730; 93970; 97139; 99284; J0692; J1940; J2270; J2405; J3370; J7050

== ENCOUNTER → 2019-11-12 | Outpatient (CLI) | payer MEDICARE, OTHER ==
[~2019-11-12] MED LIST changes: +ATORVASTATIN CA20 MG PO; +CARBIDOPA-LEVO1 EAC1 PO; -COLLAGENASE OINTMENT 30 GM TUBE ONE; +ELIQUIS5 MG PO; +METOPROLOL SUCC50 MG PO; -MINERAL OIL/PETROLAT/GLYCERI 6OZ BTL ONE; +PRAMIPEXOLE DIHY1 MG PO
--- NOTE | 2019-11-12 14:25 | Diagnostic Imaging Report ---
EXAMINATION: CHEST XRAY LINE PLACEMENT INDICATION: Line placement COMPARISON: None FINDINGS: LINES/TUBES:Right PICC line terminates in the superior vena cava. LUNGS:The lungs are moderately inflated. No focal consolidation or pulmonary edema. PLEURA:No pleural effusion or pneumothorax. MEDIASTINUM:The cardiomediastinal silhouette appears normal in size and shape. BONES/SOFT TISSUES:No acute osseous injury. ABDOMEN:No free air under the diaphragm. IMPRESSION: Right PICC line terminates in the superior vena cava. Signed by: Usama Albert MD on 11/12/2019 2:22 PM
== END ==
LOC: DX 13:18
PROVIDERS: ATTEND Internal Medicine Infectious Disease
DX: I87.332 Chronic venous hypertension (idiopathic) with ulcer and inflammation of left lower extremity (principal); L97.829 Non-pressure chronic ulcer of other part of left lower leg with unspecified severity
CPT/HCPCS: 36569

== ENCOUNTER 2020-03-07 11:08 | Outpatient (RCR) | payer MEDICARE, OTHER ==
[~2020-03-07 11:08] MED LIST changes: +MINERAL OIL/PETROLAT/GLYCERI 2OZ CRM ONE
== END 2020-03-25 ==
LOC: WCC 11:08
PROVIDERS: ATTEND Internal Medicine Infectious Disease
DX: I87.332 Chronic venous hypertension (idiopathic) with ulcer and inflammation of left lower extremity (principal); L97.829 Non-pressure chronic ulcer of other part of left lower leg with unspecified severity; L02.818 Cutaneous abscess of other sites; L03.116 Cellulitis of left lower limb; L03.119 Cellulitis of unspecified part of limb; R60.0 Localized edema; I73.89 Other specified peripheral vascular diseases; I87.2 Venous insufficiency (chronic) (peripheral); L01.00 Impetigo, unspecified; B95.1 Streptococcus, group B, as the cause of diseases classified elsewhere; B96.29 Other Escherichia coli [E. coli] as the cause of diseases classified elsewhere; B96.89 Other specified bacterial agents as the cause of diseases classified elsewhere; I10 Essential (primary) hypertension; G20 Parkinson's disease; E66.01 Morbid (severe) obesity due to excess calories; E78.5 Hyperlipidemia, unspecified; I48.91 Unspecified atrial fibrillation; I50.20 Unspecified systolic (congestive) heart failure

== ENCOUNTER 2020-04-11 10:59 | Outpatient (RCR) | payer MEDICARE, OTHER ==
[~2020-04-11 10:59] MED LIST changes: -MINERAL OIL/PETROLAT/GLYCERI 2OZ CRM ONE; +MINERAL OIL/PETROLAT/GLYCERI 6OZ BTL ONE
== END 2020-04-25 ==
LOC: WCC 10:59
PROVIDERS: ATTEND Internal Medicine Infectious Disease
DX: I87.312 Chronic venous hypertension (idiopathic) with ulcer of left lower extremity (principal); L02.818 Cutaneous abscess of other sites; L03.119 Cellulitis of unspecified part of limb; L97.821 Non-pressure chronic ulcer of other part of left lower leg limited to breakdown of skin; L97.811 Non-pressure chronic ulcer of other part of right lower leg limited to breakdown of skin; I87.311 Chronic venous hypertension (idiopathic) with ulcer of right lower extremity; R60.0 Localized edema; I87.2 Venous insufficiency (chronic) (peripheral); I73.89 Other specified peripheral vascular diseases; L01.00 Impetigo, unspecified; I50.20 Unspecified systolic (congestive) heart failure; I48.91 Unspecified atrial fibrillation; I10 Essential (primary) hypertension; G20 Parkinson's disease; E78.5 Hyperlipidemia, unspecified; E66.01 Morbid (severe) obesity due to excess calories

== ENCOUNTER 2020-05-16 14:32 | Outpatient (RCR) | payer MEDICARE, OTHER ==
[~2020-05-16 14:32] MED LIST changes: -MINERAL OIL/PETROLAT/GLYCERI 6OZ BTL ONE
== END 2020-05-26 ==
LOC: WCC 14:32
PROVIDERS: ATTEND Internal Medicine Infectious Disease
DX: I87.312 Chronic venous hypertension (idiopathic) with ulcer of left lower extremity (principal); I87.311 Chronic venous hypertension (idiopathic) with ulcer of right lower extremity; L97.821 Non-pressure chronic ulcer of other part of left lower leg limited to breakdown of skin; L97.811 Non-pressure chronic ulcer of other part of right lower leg limited to breakdown of skin; L02.818 Cutaneous abscess of other sites; L03.119 Cellulitis of unspecified part of limb; R60.0 Localized edema; I87.2 Venous insufficiency (chronic) (peripheral); I73.89 Other specified peripheral vascular diseases; L01.00 Impetigo, unspecified; I10 Essential (primary) hypertension; I48.91 Unspecified atrial fibrillation; I50.20 Unspecified systolic (congestive) heart failure; E78.5 Hyperlipidemia, unspecified; G20 Parkinson's disease; E66.01 Morbid (severe) obesity due to excess calories

== ENCOUNTER 2020-06-13 11:07 | Outpatient (RCR) | payer MEDICARE, OTHER | END 2020-06-25 | LOC: WCC 11:07 | PROVIDERS: ATTEND Internal Medicine Infectious Disease | DX: I87.311 Chronic venous hypertension (idiopathic) with ulcer of right lower extremity (principal); I87.312 Chronic venous hypertension (idiopathic) with ulcer of left lower extremity; L97.821 Non-pressure chronic ulcer of other part of left lower leg limited to breakdown of skin; L97.811 Non-pressure chronic ulcer of other part of right lower leg limited to breakdown of skin; L02.818 Cutaneous abscess of other sites; L03.119 Cellulitis of unspecified part of limb; I73.89 Other specified peripheral vascular diseases; I87.2 Venous insufficiency (chronic) (peripheral); R60.0 Localized edema; L01.00 Impetigo, unspecified; G20 Parkinson's disease; I10 Essential (primary) hypertension; I50.20 Unspecified systolic (congestive) heart failure; E78.5 Hyperlipidemia, unspecified; I48.91 Unspecified atrial fibrillation; E66.01 Morbid (severe) obesity due to excess calories ==

== ENCOUNTER 2020-07-11 13:15 | Outpatient (RCR) | payer MEDICARE, OTHER ==
[~2020-07-11 13:15] MED LIST changes: +MINERAL OIL/PETROLAT/GLYCERI 6OZ BTL ONE
[2020-07-11] MEDS ORDERED: MINERAL OIL/PETROLAT/GLYCERI 6OZ BTL ONE (17:06)
== END 2020-07-26 ==
LOC: WCC 13:15
PROVIDERS: ATTEND Internal Medicine Infectious Disease
DX: L02.818 Cutaneous abscess of other sites (principal); I73.89 Other specified peripheral vascular diseases; I87.2 Venous insufficiency (chronic) (peripheral); L03.119 Cellulitis of unspecified part of limb; R60.0 Localized edema; L01.00 Impetigo, unspecified; G20 Parkinson's disease; I10 Essential (primary) hypertension; I50.20 Unspecified systolic (congestive) heart failure; I48.91 Unspecified atrial fibrillation; E78.5 Hyperlipidemia, unspecified; E66.01 Morbid (severe) obesity due to excess calories

== ENCOUNTER → 2020-08-25 | Outpatient (RCR) | payer MEDICARE, OTHER ==
[~2020-08-25] MED LIST changes: +MUPIROCIN 2% OINT 22 GM TUBE ONE
== END ==
LOC: WCC 07-28 13:30
PROVIDERS: ATTEND Internal Medicine Infectious Disease
DX: L02.818 Cutaneous abscess of other sites (principal); L03.119 Cellulitis of unspecified part of limb; L01.00 Impetigo, unspecified; I87.2 Venous insufficiency (chronic) (peripheral); I73.89 Other specified peripheral vascular diseases; R60.0 Localized edema; I10 Essential (primary) hypertension; I48.91 Unspecified atrial fibrillation; I50.20 Unspecified systolic (congestive) heart failure; E78.5 Hyperlipidemia, unspecified; G20 Parkinson's disease; E66.01 Morbid (severe) obesity due to excess calories

== ENCOUNTER 2020-09-22 14:46 | Outpatient (RCR) | payer MEDICARE, OTHER ==
[2020-09-22] MEDS ORDERED: MUPIROCIN 2% OINT 22 GM TUBE ONE (17:52)
[2020-09-22] MEDS ORDERED: MINERAL OIL/PETROLAT/GLYCERI 2OZ CRM ONE (17:52)
== END 2020-09-25 ==
LOC: WCC 14:46
PROVIDERS: ATTEND Internal Medicine Infectious Disease
DX: I87.312 Chronic venous hypertension (idiopathic) with ulcer of left lower extremity (principal); L97.821 Non-pressure chronic ulcer of other part of left lower leg limited to breakdown of skin; L02.818 Cutaneous abscess of other sites; L03.119 Cellulitis of unspecified part of limb; R60.0 Localized edema; L01.00 Impetigo, unspecified; I87.2 Venous insufficiency (chronic) (peripheral); I73.89 Other specified peripheral vascular diseases; I10 Essential (primary) hypertension; G20 Parkinson's disease; I48.91 Unspecified atrial fibrillation; I50.20 Unspecified systolic (congestive) heart failure; E78.5 Hyperlipidemia, unspecified; E66.01 Morbid (severe) obesity due to excess calories

== ENCOUNTER 2020-10-10 11:35 | Outpatient (RCR) | payer MEDICARE, OTHER ==
[~2020-10-10 11:35] MED LIST changes: -MINERAL OIL/PETROLAT/GLYCERI 6OZ BTL ONE; -MUPIROCIN 2% OINT 22 GM TUBE ONE
[2020-10-10] MEDS ORDERED: MINERAL OIL/PETROLAT/GLYCERI 2OZ CRM ONE (16:23)
[2020-10-10] MEDS ORDERED: MUPIROCIN 2% OINT 22 GM TUBE ONE (16:23)
== END 2020-10-26 ==
LOC: WCC 11:35
PROVIDERS: ATTEND Internal Medicine Infectious Disease
DX: I87.312 Chronic venous hypertension (idiopathic) with ulcer of left lower extremity (principal); L97.321 Non-pressure chronic ulcer of left ankle limited to breakdown of skin; L97.821 Non-pressure chronic ulcer of other part of left lower leg limited to breakdown of skin; L02.818 Cutaneous abscess of other sites; R60.0 Localized edema; L01.00 Impetigo, unspecified; L03.119 Cellulitis of unspecified part of limb; I87.2 Venous insufficiency (chronic) (peripheral); I73.89 Other specified peripheral vascular diseases; G20 Parkinson's disease; I10 Essential (primary) hypertension; E78.5 Hyperlipidemia, unspecified; I48.91 Unspecified atrial fibrillation; I50.20 Unspecified systolic (congestive) heart failure; E66.01 Morbid (severe) obesity due to excess calories

== ENCOUNTER 2020-10-31 15:28 | Outpatient (RCR) | payer MEDICARE, OTHER ==
[2020-10-31] MEDS ORDERED: MINERAL OIL/PETROLAT/GLYCERI 6OZ BTL ONE (16:16)
[2020-11-08] MEDS ORDERED: PROAIR DIGIHAL90 MCG (22:51)
[2020-11-08] MEDS ORDERED: BUDESONIDE-FO10.2 G1 (22:51)
== END 2020-11-23 ==
LOC: WCC 15:28
PROVIDERS: ATTEND Internal Medicine Infectious Disease
DX: I87.312 Chronic venous hypertension (idiopathic) with ulcer of left lower extremity (principal); L97.821 Non-pressure chronic ulcer of other part of left lower leg limited to breakdown of skin; L97.321 Non-pressure chronic ulcer of left ankle limited to breakdown of skin; L02.818 Cutaneous abscess of other sites; L03.119 Cellulitis of unspecified part of limb; I73.89 Other specified peripheral vascular diseases; R60.0 Localized edema; I87.2 Venous insufficiency (chronic) (peripheral); L01.00 Impetigo, unspecified; I10 Essential (primary) hypertension; G20 Parkinson's disease; E78.5 Hyperlipidemia, unspecified; I50.20 Unspecified systolic (congestive) heart failure; I48.91 Unspecified atrial fibrillation; E66.01 Morbid (severe) obesity due to excess calories

== ENCOUNTER 2020-11-05 16:45 | Inpatient (IN) | payer MEDICARE, OTHER ==
[~2020-11-05] VITALS: Ht 167.6 cm; Wt 138.1 kg
[2020-11-05 18:31] LABS: BASOPHILS % 0.6 % (0.0-1.0); EOSINOPHILS # (AUTO) 0.2 (0.0-0.4); EOSINOPHILS % 3.8 % (0.0-6.0); HEMATOCRIT 44.3 % (38.2-49.6); LYMPHOCYTES # (AUTO) 0.6 (1.0-3.2); LYMPHOCYTES % 11.5 % (18.0-39.1); MEAN CORPUSCULAR HEMOGLOBIN 28.7 pg (28-32); MEAN CORPUSCULAR HGB CONC 31.6 g/dL (31-35); MONOCYTES # (AUTO) 0.6 (0.2-0.8); MONOCYTES % 11.1 % (4.4-11.3); NEUTROPHILS # (AUTO) 3.7 (2.1-6.9); NEUTROPHILS % 72.8 % (38.7-80.0); PLATELET COUNT 123 x10e3/uL (140-360); RED BLOOD COUNT 4.87 x10e6/uL (4.3-5.7); RED CELL DISTRIBUTION WIDTH 15.3 % (11.7-14.4)
[2020-11-05 18:47] LABS: ALANINE AMINOTRANSFERASE 26 IU/L (0-55); ALBUMIN 3.3 g/dL (3.5-5.0); ALBUMIN/GLOBULIN RATIO 0.7 (0.8-2.0); ALKALINE PHOSPHATASE 172 IU/L (40-150); BLOOD UREA NITROGEN 14 mg/dL (7-26); BUN/CREATININE RATIO 19 (6-25); CARBON DIOXIDE 29 mmol/L (22-29); CHLORIDE 100 mmol/L (98-107); CREATININE, SERUM 0.73 mg/dL (0.72-1.25); EST GLOMERULAR FILTRATION RATE > 60 ML/MIN (60-); GLUCOSE 94 mg/dL (74-118); SODIUM 140 mmol/L (136-145)
[2020-11-05] MEDS ORDERED: SODIUM CHLORIDE FLUSH 10 ML SYR INJ PRN (19:15)
[2020-11-05] MEDS ORDERED: ONDANSETRON HCL INJ 2MG/ML 2ML 2 MG/ML VIAL IV PRN (19:15)
[2020-11-05] MEDS: VANCOMYCIN 1GM/NS 250 ML 250 ML IV SCH (20:02)
[2020-11-05 21:53] VITALS: BP 114/83
[2020-11-05 22:40] VITALS: BP 114/83
[2020-11-05 22:42] VITALS: BP 114/83
[2020-11-05] MEDS ORDERED: PIPERACILLIN/TAZOBAC 3.375 GM VIAL ONE (23:41)
[2020-11-05] MEDS ORDERED: SODIUM CHLORIDE 0.9% 50ML 50 ML ONE (23:42)
[2020-11-06] VITALS (8 sets, daily range): BP systolic 107–122; BP diastolic 61–71
[2020-11-06] MEDS: PIPERACILLIN/TAZOBAC 3.375 GM in SODIUM CHLORIDE 0.9% 50ML 50 ML IV SCH ×4 (00:12→20:00)
[2020-11-06] MEDS: ACETAMINOPHEN 325 MG TAB PO PRN ×2 (02:17→15:36)
[2020-11-06] MEDS ORDERED: SODIUM CHLORIDE 0.9% 50ML 50 ML ONE ×3 (04:41→22:55)
[2020-11-06] MEDS ORDERED: PIPERACILLIN/TAZOBAC 3.375 GM VIAL ONE ×3 (04:41→21:32)
[2020-11-06 05:21] LABS: BASOPHILS % 0.4 % (0.0-1.0); EOSINOPHILS # (AUTO) 0.2 (0.0-0.4); HEMATOCRIT 36.8 % (38.2-49.6); LYMPHOCYTES # (AUTO) 0.6 (1.0-3.2); LYMPHOCYTES % 11.9 % (18.0-39.1); MEAN CORPUSCULAR HEMOGLOBIN 28.5 pg (28-32); MEAN CORPUSCULAR HGB CONC 32.3 g/dL (31-35); MONOCYTES # (AUTO) 0.8 (0.2-0.8); MONOCYTES % 15.9 % (4.4-11.3); NEUTROPHILS # (AUTO) 3.2 (2.1-6.9); NEUTROPHILS % 67.4 % (38.7-80.0); PLATELET COUNT 133 x10e3/uL (140-360); RED BLOOD COUNT 4.18 x10e6/uL (4.3-5.7); RED CELL DISTRIBUTION WIDTH 15.4 % (11.7-14.4)
[2020-11-06 05:39] LABS: HEMOGLOBIN 11.9 g/dL (14.0-18.0)
[2020-11-06 05:44] LABS: ALANINE AMINOTRANSFERASE 20 IU/L (0-55); ALBUMIN 2.7 g/dL (3.5-5.0); ALBUMIN/GLOBULIN RATIO 0.8 (0.8-2.0); ALKALINE PHOSPHATASE 112 IU/L (40-150); ANION GAP 14.7 mmol/L (8-16); BLOOD UREA NITROGEN 13 mg/dL (7-26); BUN/CREATININE RATIO 19 (6-25); CALCIUM 8.2 mg/dL (8.4-10.2); CARBON DIOXIDE 27 mmol/L (22-29); CHLORIDE 103 mmol/L (98-107); CREATININE, SERUM 0.67 mg/dL (0.72-1.25); EST GLOMERULAR FILTRATION RATE > 60 ML/MIN (60-); GLUCOSE 105 mg/dL (74-118); POTASSIUM 3.7 mmol/L (3.5-5.1); SODIUM 141 mmol/L (136-145)
[2020-11-06] MEDS: VANCOMYCIN 1GM/NS 250 ML 250 ML IV SCH ×2 (07:00→22:56)
[2020-11-06] MEDS ORDERED: SODIUM CHLORIDE 0.9% 250ML 250 ML ONE (09:45)
[2020-11-06] MEDS: CARBIDOPA/LEVODOPA 25/100 TAB PO SCH ×3 (13:00→22:57)
[2020-11-06] MEDS: PRAMIPEXOLE DIHYDROCHLORIDE 1 MG TAB PO SCH ×3 (13:00→22:57)
[2020-11-06] MEDS: APIXABAN 5 MG TABLET PO SCH (17:00)
[2020-11-06] MEDS: METOPROLOL SUCCINATE 50 MG TAB XL PO SCH (17:00)
[2020-11-06] MEDS: HYDROCODONE/APAP 5MG-325MG TAB PO PRN (17:57)
[2020-11-06] MEDS ORDERED: ONDANSETRON HCL 4 MG ORAL DISINTEGRATING TAB PO PRN (18:00)
[2020-11-06] MEDS: ATORVASTATIN 20 MG TAB PO SCH (22:57)
[2020-11-07] VITALS (7 sets, daily range): BP systolic 104–123; BP diastolic 60–78
[2020-11-07] MEDS ORDERED: SODIUM CHLORIDE 0.9% 50ML 50 ML ONE ×2 (05:07→20:48)
[2020-11-07] MEDS ORDERED: PIPERACILLIN/TAZOBAC 3.375 GM VIAL ONE ×3 (05:08→20:47)
[2020-11-07 05:54] LABS: BASOPHILS % 0.6 % (0.0-1.0); EOSINOPHILS # (AUTO) 0.3 (0.0-0.4); EOSINOPHILS % 5.9 % (0.0-6.0); HEMATOCRIT 36.9 % (38.2-49.6); HEMOGLOBIN 11.7 g/dL (14.0-18.0); LYMPHOCYTES # (AUTO) 0.8 (1.0-3.2); MEAN CORPUSCULAR HEMOGLOBIN 29.2 pg (28-32); MEAN CORPUSCULAR HGB CONC 31.7 g/dL (31-35); MONOCYTES # (AUTO) 0.7 (0.2-0.8); MONOCYTES % 14.7 % (4.4-11.3); NEUTROPHILS # (AUTO) 2.9 (2.1-6.9); NEUTROPHILS % 61.4 % (38.7-80.0); PLATELET COUNT 142 x10e3/uL (140-360); RED BLOOD COUNT 4.01 x10e6/uL (4.3-5.7); RED CELL DISTRIBUTION WIDTH 15.4 % (11.7-14.4)
[2020-11-07] MEDS: PIPERACILLIN/TAZOBAC 3.375 GM in SODIUM CHLORIDE 0.9% 50ML 50 ML IV SCH ×3 (06:01→20:55)
[2020-11-07 06:20] LABS: ANION GAP 12.8 mmol/L (8-16); BLOOD UREA NITROGEN 13 mg/dL (7-26); BUN/CREATININE RATIO 20 (6-25); CALCIUM 8.3 mg/dL (8.4-10.2); CARBON DIOXIDE 29 mmol/L (22-29); CHLORIDE 103 mmol/L (98-107); CREATININE, SERUM 0.66 mg/dL (0.72-1.25); EST GLOMERULAR FILTRATION RATE > 60 ML/MIN (60-); GLUCOSE 93 mg/dL (74-118); POTASSIUM 3.8 mmol/L (3.5-5.1); SODIUM 141 mmol/L (136-145)
[2020-11-07] MEDS: APIXABAN 5 MG TABLET PO SCH ×2 (10:02→17:36)
[2020-11-07] MEDS: VANCOMYCIN 1GM/NS 250 ML 250 ML IV SCH ×2 (10:02→20:48)
[2020-11-07] MEDS: PRAMIPEXOLE DIHYDROCHLORIDE 1 MG TAB PO SCH ×4 (10:02→20:49)
[2020-11-07] MEDS: CARBIDOPA/LEVODOPA 25/100 TAB PO SCH ×4 (10:02→20:49)
[2020-11-07] MEDS: METOPROLOL SUCCINATE 50 MG TAB XL PO SCH ×2 (10:03→17:36)
[2020-11-07] MEDS ORDERED: SODIUM CHLORIDE 0.9% 250ML 250 ML ONE (12:07)
[2020-11-07] MEDS: ATORVASTATIN 20 MG TAB PO SCH (20:48)
[2020-11-08] VITALS (9 sets, daily range): BP systolic 94–117; BP diastolic 60–79
[2020-11-08] MEDS: PIPERACILLIN/TAZOBAC 3.375 GM in SODIUM CHLORIDE 0.9% 50ML 50 ML IV SCH ×3 (05:00→21:30)
[2020-11-08 05:54] LABS: BASOPHILS % 0.6 % (0.0-1.0); EOSINOPHILS # (AUTO) 0.4 (0.0-0.4); EOSINOPHILS % 5.8 % (0.0-6.0); HEMATOCRIT 38.7 % (38.2-49.6); HEMOGLOBIN 12.1 g/dL (14.0-18.0); LYMPHOCYTES # (AUTO) 1.1 (1.0-3.2); LYMPHOCYTES % 17.2 % (18.0-39.1); MEAN CORPUSCULAR HEMOGLOBIN 28.5 pg (28-32); MEAN CORPUSCULAR HGB CONC 31.3 g/dL (31-35); MEAN CORPUSCULAR VOLUME 91.3 fL (81-99); MONOCYTES # (AUTO) 1.2 (0.2-0.8); MONOCYTES % 17.6 % (4.4-11.3); NEUTROPHILS # (AUTO) 3.8 (2.1-6.9); NEUTROPHILS % 58.3 % (38.7-80.0); PLATELET COUNT 150 x10e3/uL (140-360); RED BLOOD COUNT 4.24 x10e6/uL (4.3-5.7); RED CELL DISTRIBUTION WIDTH 15.3 % (11.7-14.4)
[2020-11-08 06:09] LABS: CHOL/HDL RATIO 2.5 (3.9-4.7); PHOSPHORUS 3.1 MG/DL (2.3-4.7)
[2020-11-08 06:10] LABS: BLOOD UREA NITROGEN 13 mg/dL (7-26); BUN/CREATININE RATIO 20 (6-25); CALCIUM 8.4 mg/dL (8.4-10.2); CARBON DIOXIDE 26 mmol/L (22-29); CHLORIDE 105 mmol/L (98-107); CREATININE, SERUM 0.66 mg/dL (0.72-1.25); EST GLOMERULAR FILTRATION RATE > 60 ML/MIN (60-); GLUCOSE 87 mg/dL (74-118); SODIUM 138 mmol/L (136-145)
[2020-11-08] MEDS ORDERED: PIPERACILLIN/TAZOBAC 3.375 GM VIAL ONE ×3 (06:22→19:43)
[2020-11-08 06:32] LABS: THYROID STIMULATING HORMONE 1.547 uIU/mL (0.350-4.940)
[2020-11-08] MEDS: PRAMIPEXOLE DIHYDROCHLORIDE 1 MG TAB PO SCH ×4 (09:23→21:30)
[2020-11-08] MEDS: CARBIDOPA/LEVODOPA 25/100 TAB PO SCH ×4 (09:23→21:30)
[2020-11-08] MEDS: APIXABAN 5 MG TABLET PO SCH ×2 (09:23→17:49)
[2020-11-08] MEDS: VANCOMYCIN 1GM/NS 250 ML 250 ML IV SCH ×2 (09:23→19:59)
[2020-11-08] MEDS: METOPROLOL SUCCINATE 50 MG TAB XL PO SCH ×2 (09:23→17:49)
[2020-11-08] MEDS ORDERED: SODIUM CHLORIDE 0.9% 50ML 100 ML ONE (11:47)
[2020-11-08] MEDS ORDERED: PANTOPRAZOLE SOD 40 MG TABEC PO ONE (17:30)
[2020-11-08] MEDS ORDERED: SODIUM CHLORIDE 0.9% 50ML 50 ML ONE (19:46)
[2020-11-08] MEDS: ATORVASTATIN 20 MG TAB PO SCH (21:30)
[2020-11-08] MEDS ORDERED: PROAIR DIGIHAL90 MCG (22:51)
[2020-11-08] MEDS ORDERED: BUDESONIDE-FO10.2 G1 (22:51)
[2020-11-09] VITALS (8 sets, daily range): BP systolic 97–122; BP diastolic 56–74
[2020-11-09] MEDS ORDERED: PIPERACILLIN/TAZOBAC 3.375 GM VIAL ONE ×3 (04:13→19:33)
[2020-11-09] MEDS ORDERED: SODIUM CHLORIDE 0.9% 50ML 50 ML ONE ×3 (04:15→19:33)
[2020-11-09] MEDS: PIPERACILLIN/TAZOBAC 3.375 GM in SODIUM CHLORIDE 0.9% 50ML 50 ML IV SCH ×3 (04:29→20:00)
[2020-11-09] MEDS: ALBUTEROL SULFATE HFA 8GM INHALATION AEROSOL INH PRN (06:49)
[2020-11-09] MEDS: CARBIDOPA/LEVODOPA 25/100 TAB PO SCH ×4 (08:42→20:25)
[2020-11-09] MEDS: METOPROLOL SUCCINATE 50 MG TAB XL PO SCH ×2 (08:42→17:20)
[2020-11-09] MEDS: APIXABAN 5 MG TABLET PO SCH ×2 (08:42→17:19)
[2020-11-09] MEDS: PANTOPRAZOLE SOD 40 MG TABEC PO SCH (08:42)
[2020-11-09] MEDS: PRAMIPEXOLE DIHYDROCHLORIDE 1 MG TAB PO SCH ×4 (08:42→20:25)
[2020-11-09] MEDS: VANCOMYCIN 1GM/NS 250 ML 250 ML IV SCH (08:42)
[2020-11-09] MEDS ORDERED: SODIUM CHLORIDE 0.9% 250ML 250 ML ONE (09:27)
[2020-11-09] MEDS: ATORVASTATIN 20 MG TAB PO SCH (20:25)
[2020-11-10] VITALS (7 sets, daily range): BP systolic 98–114; BP diastolic 55–88
[2020-11-10] MEDS: PIPERACILLIN/TAZOBAC 3.375 GM in SODIUM CHLORIDE 0.9% 50ML 50 ML IV SCH ×3 (04:00→20:00)
[2020-11-10] MEDS ORDERED: PIPERACILLIN/TAZOBAC 3.375 GM VIAL ONE ×3 (04:11→19:43)
[2020-11-10] MEDS ORDERED: SODIUM CHLORIDE 0.9% 50ML 50 ML ONE ×2 (04:11→19:44)
[2020-11-10 05:32] LABS: BASOPHILS % 0.5 % (0.0-1.0); EOSINOPHILS # (AUTO) 0.3 (0.0-0.4); EOSINOPHILS % 5.8 % (0.0-6.0); HEMATOCRIT 36.8 % (38.2-49.6); HEMOGLOBIN 11.6 g/dL (14.0-18.0); LYMPHOCYTES % 18.3 % (18.0-39.1); MEAN CORPUSCULAR HEMOGLOBIN 28.6 pg (28-32); MEAN CORPUSCULAR HGB CONC 31.5 g/dL (31-35); MEAN CORPUSCULAR VOLUME 90.9 fL (81-99); MONOCYTES # (AUTO) 0.6 (0.2-0.8); MONOCYTES % 10.5 % (4.4-11.3); NEUTROPHILS # (AUTO) 3.5 (2.1-6.9); NEUTROPHILS % 64.4 % (38.7-80.0); PLATELET COUNT 174 x10e3/uL (140-360); RED BLOOD COUNT 4.05 x10e6/uL (4.3-5.7); RED CELL DISTRIBUTION WIDTH 15.3 % (11.7-14.4)
[2020-11-10 05:50] LABS: ANION GAP 9.8 mmol/L (8-16); BLOOD UREA NITROGEN 10 mg/dL (7-26); BUN/CREATININE RATIO 16 (6-25); CALCIUM 8.3 mg/dL (8.4-10.2); CARBON DIOXIDE 30 mmol/L (22-29); CHLORIDE 103 mmol/L (98-107); CREATININE, SERUM 0.63 mg/dL (0.72-1.25); EST GLOMERULAR FILTRATION RATE > 60 ML/MIN (60-); GLUCOSE 89 mg/dL (74-118); POTASSIUM 3.8 mmol/L (3.5-5.1); SODIUM 139 mmol/L (136-145)
[2020-11-10] MEDS: PANTOPRAZOLE SOD 40 MG TABEC PO SCH (07:30)
[2020-11-10] MEDS: METOPROLOL SUCCINATE 50 MG TAB XL PO SCH ×2 (09:00→16:20)
[2020-11-10] MEDS: APIXABAN 5 MG TABLET PO SCH ×2 (09:00→16:20)
[2020-11-10] MEDS: PRAMIPEXOLE DIHYDROCHLORIDE 1 MG TAB PO SCH ×4 (09:00→21:03)
[2020-11-10] MEDS: CARBIDOPA/LEVODOPA 25/100 TAB PO SCH ×4 (09:00→21:03)
[2020-11-10] MEDS: ACETAMINOPHEN 325 MG TAB PO PRN (15:55)
[2020-11-10] MEDS: ATORVASTATIN 20 MG TAB PO SCH (21:03)
[2020-11-11] VITALS (8 sets, daily range): BP systolic 111–123; BP diastolic 52–76
[2020-11-11] MEDS ORDERED: SODIUM CHLORIDE 0.9% 50ML 50 ML ONE ×2 (03:55→20:13)
[2020-11-11] MEDS ORDERED: PIPERACILLIN/TAZOBAC 3.375 GM VIAL ONE ×3 (03:55→20:13)
[2020-11-11] MEDS: PIPERACILLIN/TAZOBAC 3.375 GM in SODIUM CHLORIDE 0.9% 50ML 50 ML IV SCH ×3 (04:00→20:39)
[2020-11-11] MEDS: BUDESONIDE/FORMOTEROL 160/4.5MCG INHALER INH PRN (06:30)
[2020-11-11] MEDS: ALBUTEROL SULFATE HFA 8GM INHALATION AEROSOL INH PRN ×2 (06:35→21:57)
[2020-11-11] MEDS: PANTOPRAZOLE SOD 40 MG TABEC PO SCH (07:30)
[2020-11-11] MEDS: CARBIDOPA/LEVODOPA 25/100 TAB PO SCH ×4 (09:00→20:39)
[2020-11-11] MEDS: APIXABAN 5 MG TABLET PO SCH ×2 (09:00→16:30)
[2020-11-11] MEDS: PRAMIPEXOLE DIHYDROCHLORIDE 1 MG TAB PO SCH ×4 (09:00→20:39)
[2020-11-11] MEDS: METOPROLOL SUCCINATE 50 MG TAB XL PO SCH ×2 (09:00→16:30)
[2020-11-11] MEDS: ACETAMINOPHEN 325 MG TAB PO PRN (14:30)
[2020-11-11] MEDS: HYDROCODONE/APAP 5MG-325MG TAB PO PRN (14:30)
[2020-11-11] MEDS: ATORVASTATIN 20 MG TAB PO SCH (20:39)
[2020-11-12] VITALS (14 sets, daily range): BP systolic 92–135; BP diastolic 52–99
[2020-11-12] MEDS: PIPERACILLIN/TAZOBAC 3.375 GM in SODIUM CHLORIDE 0.9% 50ML 50 ML IV SCH ×3 (04:00→20:34)
[2020-11-12] MEDS ORDERED: SODIUM CHLORIDE 0.9% 50ML 50 ML ONE (04:02)
[2020-11-12] MEDS ORDERED: PIPERACILLIN/TAZOBAC 3.375 GM VIAL ONE (04:02)
[2020-11-12 06:22] LABS: BASOPHILS % 0.7 % (0.0-1.0); EOSINOPHILS # (AUTO) 0.3 (0.0-0.4); EOSINOPHILS % 5.6 % (0.0-6.0); HEMATOCRIT 36.3 % (38.2-49.6); HEMOGLOBIN 11.4 g/dL (14.0-18.0); LYMPHOCYTES # (AUTO) 0.8 (1.0-3.2); LYMPHOCYTES % 17.3 % (18.0-39.1); MEAN CORPUSCULAR HEMOGLOBIN 28.9 pg (28-32); MEAN CORPUSCULAR HGB CONC 31.4 g/dL (31-35); MEAN CORPUSCULAR VOLUME 92.1 fL (81-99); MONOCYTES # (AUTO) 0.5 (0.2-0.8); MONOCYTES % 11.2 % (4.4-11.3); NEUTROPHILS # (AUTO) 2.9 (2.1-6.9); NEUTROPHILS % 64.5 % (38.7-80.0); PLATELET COUNT 161 x10e3/uL (140-360); RED BLOOD COUNT 3.94 x10e6/uL (4.3-5.7); RED CELL DISTRIBUTION WIDTH 15.1 % (11.7-14.4)
[2020-11-12 06:58] LABS: ANION GAP 11.8 mmol/L (8-16); BLOOD UREA NITROGEN 12 mg/dL (7-26); BUN/CREATININE RATIO 17 (6-25); CALCIUM 8.3 mg/dL (8.4-10.2); CARBON DIOXIDE 29 mmol/L (22-29); CHLORIDE 103 mmol/L (98-107); EST GLOMERULAR FILTRATION RATE > 60 ML/MIN (60-); GLUCOSE 90 mg/dL (74-118); MAGNESIUM 1.9 MG/DL (1.3-2.1); PHOSPHORUS 3.3 MG/DL (2.3-4.7); POTASSIUM 3.8 mmol/L (3.5-5.1); SODIUM 140 mmol/L (136-145)
[2020-11-12] MEDS: PANTOPRAZOLE SOD 40 MG TABEC PO SCH (09:21)
[2020-11-12] MEDS: APIXABAN 5 MG TABLET PO SCH (09:21)
[2020-11-12] MEDS: PRAMIPEXOLE DIHYDROCHLORIDE 1 MG TAB PO SCH ×4 (09:21→20:34)
[2020-11-12] MEDS: CARBIDOPA/LEVODOPA 25/100 TAB PO SCH ×4 (09:22→20:34)
[2020-11-12] MEDS: METOPROLOL SUCCINATE 50 MG TAB XL PO SCH ×2 (09:22→17:00)
[2020-11-12] MEDS: ALBUTEROL SULFATE HFA 8GM INHALATION AEROSOL INH PRN ×2 (09:32→18:15)
[2020-11-12] MEDS: BUDESONIDE/FORMOTEROL 160/4.5MCG INHALER INH PRN (09:32)
[2020-11-12] MEDS ORDERED: MIDAZOLAM HCL 2 MG/2 ML VIAL ONE (11:00)
[2020-11-12] MEDS ORDERED: FENTANYL CITRATE/PF 100MCG/2 ML INJ ONE (11:00)
[2020-11-12] MEDS ORDERED: LIDOCAINE HCL 2% LOCAL 20 ML VIAL ONE (11:01)
[2020-11-12] MEDS ORDERED: HEPARIN SOD/SOD CHLORIDE 2,000 ML ONE (11:01)
[2020-11-12] MEDS ORDERED: IOPAMIDOL 300MG/ML 100 ML INFUS..BTL IV ONE ×2 (11:02→12:01)
[2020-11-12] MEDS ORDERED: SODIUM CHLORIDE 0.9% 1000ML 1,000 ML ONE (11:02)
[2020-11-12] MEDS ORDERED: VERAPAMIL HCL 2.5 MG/ML 2 ML VIAL ONE (11:47)
[2020-11-12] MEDS: ATORVASTATIN 20 MG TAB PO SCH (20:34)
[2020-11-13] VITALS (7 sets, daily range): BP systolic 100–132; BP diastolic 47–92
[2020-11-13] MEDS: PIPERACILLIN/TAZOBAC 3.375 GM in SODIUM CHLORIDE 0.9% 50ML 50 ML IV SCH ×3 (03:47→21:44)
[2020-11-13] MEDS: PRAMIPEXOLE DIHYDROCHLORIDE 1 MG TAB PO SCH ×4 (09:00→21:00)
[2020-11-13] MEDS: METOPROLOL SUCCINATE 50 MG TAB XL PO SCH ×2 (09:34→17:00)
[2020-11-13] MEDS: CARBIDOPA/LEVODOPA 25/100 TAB PO SCH ×4 (09:34→21:45)
[2020-11-13] MEDS: PANTOPRAZOLE SOD 40 MG TABEC PO SCH (09:34)
[2020-11-13] MEDS ORDERED: PRAMIPEXOLE DIHYDROCHLORIDE 0.25 MG TAB PO PRN (14:00)
[2020-11-13] MEDS: APIXABAN 5 MG TABLET PO SCH (18:16)
[2020-11-13] MEDS: ATORVASTATIN 20 MG TAB PO SCH (21:44)
[2020-11-14] VITALS (8 sets, daily range): BP systolic 110–139; BP diastolic 58–84
[2020-11-14] MEDS: PIPERACILLIN/TAZOBAC 3.375 GM in SODIUM CHLORIDE 0.9% 50ML 50 ML IV SCH ×3 (05:00→21:48)
[2020-11-14 07:02] LABS: BASOPHILS % 0.8 % (0.0-1.0); EOSINOPHILS # (AUTO) 0.3 (0.0-0.4); EOSINOPHILS % 6.3 % (0.0-6.0); HEMATOCRIT 39.7 % (38.2-49.6); HEMOGLOBIN 12.4 g/dL (14.0-18.0); LYMPHOCYTES # (AUTO) 0.8 (1.0-3.2); LYMPHOCYTES % 15.6 % (18.0-39.1); MEAN CORPUSCULAR HEMOGLOBIN 28.4 pg (28-32); MEAN CORPUSCULAR HGB CONC 31.2 g/dL (31-35); MEAN CORPUSCULAR VOLUME 91.1 fL (81-99); MONOCYTES # (AUTO) 0.5 (0.2-0.8); MONOCYTES % 10.3 % (4.4-11.3); NEUTROPHILS # (AUTO) 3.5 (2.1-6.9); NEUTROPHILS % 65.9 % (38.7-80.0); PLATELET COUNT 162 x10e3/uL (140-360); RED BLOOD COUNT 4.36 x10e6/uL (4.3-5.7); RED CELL DISTRIBUTION WIDTH 15.2 % (11.7-14.4)
[2020-11-14 07:26] LABS: ANION GAP 13.7 mmol/L (8-16); BLOOD UREA NITROGEN 10 mg/dL (7-26); BUN/CREATININE RATIO 14 (6-25); CALCIUM 8.7 mg/dL (8.4-10.2); CARBON DIOXIDE 27 mmol/L (22-29); CHLORIDE 104 mmol/L (98-107); CREATININE, SERUM 0.69 mg/dL (0.72-1.25); EST GLOMERULAR FILTRATION RATE > 60 ML/MIN (60-); GLUCOSE 80 mg/dL (74-118); MAGNESIUM 1.9 MG/DL (1.3-2.1); PHOSPHORUS 2.9 MG/DL (2.3-4.7); POTASSIUM 3.7 mmol/L (3.5-5.1); SODIUM 141 mmol/L (136-145)
[2020-11-14] MEDS: APIXABAN 5 MG TABLET PO SCH ×2 (09:32→16:43)
[2020-11-14] MEDS: PRAMIPEXOLE DIHYDROCHLORIDE 1 MG TAB PO SCH ×4 (09:32→21:48)
[2020-11-14] MEDS: CARBIDOPA/LEVODOPA 25/100 TAB PO SCH ×4 (09:32→21:48)
[2020-11-14] MEDS: PANTOPRAZOLE SOD 40 MG TABEC PO SCH (09:32)
[2020-11-14] MEDS: METOPROLOL SUCCINATE 50 MG TAB XL PO SCH ×2 (09:33→16:44)
[2020-11-14] MEDS ORDERED: SODIUM CHLORIDE 0.9% 1000ML 1,000 ML ONE (18:03)
[2020-11-14] MEDS: ATORVASTATIN 20 MG TAB PO SCH (21:48)
[2020-11-15] VITALS (8 sets, daily range): BP systolic 100–135; BP diastolic 59–89
[2020-11-15] MEDS: PIPERACILLIN/TAZOBAC 3.375 GM in SODIUM CHLORIDE 0.9% 50ML 50 ML IV SCH ×2 (03:59→12:10)
[2020-11-15] MEDS: PANTOPRAZOLE SOD 40 MG TABEC PO SCH (08:30)
[2020-11-15] MEDS: CARBIDOPA/LEVODOPA 25/100 TAB PO SCH ×4 (08:56→21:08)
[2020-11-15] MEDS: PRAMIPEXOLE DIHYDROCHLORIDE 1 MG TAB PO SCH ×4 (08:56→21:08)
[2020-11-15] MEDS: METOPROLOL SUCCINATE 50 MG TAB XL PO SCH ×2 (08:56→15:53)
[2020-11-15] MEDS: APIXABAN 5 MG TABLET PO SCH ×2 (08:56→17:24)
[2020-11-15] MEDS: ATORVASTATIN 20 MG TAB PO SCH (21:08)
[2020-11-16] VITALS: BP 125/67
[2020-11-16] MEDS ORDERED: MELATONIN 5 MG TABLET PO PRN (06:30)
[2020-11-16] MEDS ORDERED: METOPROLOL TARTRATE INJ 1 MG/ML VIAL IV PRN (06:30)
[2020-11-16] MEDS ORDERED: ACETAMINOPHEN/CODEINE 300MG - 30MG TAB PO PRN (06:30)
[2020-11-16 07:47] VITALS: BP 110/99
[2020-11-16] MEDS: PANTOPRAZOLE SOD 40 MG TABEC PO SCH (08:43)
[2020-11-16] MEDS: APIXABAN 5 MG TABLET PO SCH (08:47)
[2020-11-16] MEDS: PRAMIPEXOLE DIHYDROCHLORIDE 1 MG TAB PO SCH ×2 (08:47→12:21)
[2020-11-16] MEDS: CARBIDOPA/LEVODOPA 25/100 TAB PO SCH ×2 (08:47→12:21)
[2020-11-16] MEDS: METOPROLOL SUCCINATE 50 MG TAB XL PO SCH (08:48)
[2020-11-16 11:22] VITALS: BP 125/83
[2020-11-16] MEDS ORDERED: PIPERACILLIN/TAZOBAC 3.375 GM in SODIUM CHLORIDE 0.9% 50ML 50 ML IV SCH ×4 (14:00)
== END 2020-11-16 15:55 | DRG 603 ==
LOC: ER 17:40 → ERHOLD 19:12 → MED/SURG2 20:45
PROVIDERS: ADMIT Internal Medicine; ATTEND Internal Medicine
PROC: 02HV33Z Insertion of Infusion Device into Superior Vena Cava, Percutaneous Approach (ICD-10-PCS; 2020-11-09)
PROC: B548ZZA Ultrasonography of Superior Vena Cava, Guidance (ICD-10-PCS; 2020-11-09)
PROC: B41D1ZZ Fluoroscopy of Aorta and Bilateral Lower Extremity Arteries using Low Osmolar Contrast (ICD-10-PCS; principal; 2020-11-12)
DX: L03.116 Cellulitis of left lower limb (principal); Z68.42 Body mass index [BMI] 45.0-49.9, adult; L97.821 Non-pressure chronic ulcer of other part of left lower leg limited to breakdown of skin; Z16.24 Resistance to multiple antibiotics; E78.5 Hyperlipidemia, unspecified; I10 Essential (primary) hypertension; G20 Parkinson's disease; Z83.3 Family history of diabetes mellitus; Z82.3 Family history of stroke; Z80.9 Family history of malignant neoplasm, unspecified; E66.01 Morbid (severe) obesity due to excess calories; I73.9 Peripheral vascular disease, unspecified; L03.115 Cellulitis of right lower limb; B96.5 Pseudomonas (aeruginosa) (mallei) (pseudomallei) as the cause of diseases classified elsewhere; I89.0 Lymphedema, not elsewhere classified; I87.2 Venous insufficiency (chronic) (peripheral); I48.0 Paroxysmal atrial fibrillation
CPT/HCPCS: 36247; 36415; 36569; 71045; 75625; 75716; 80048; 80053; 80061; 80202; 83735; 84100; 84443; 85025; 87040; 87071; 87186; 87205; 93926; 94664; 97139; 99152; 99251; 99284; J2001; J2250; J2543; J3010; J3370; J7030; J7050; Q0162; Q9967; U0002